=== PATIENT | male | born 1940 | race Caucasian/White ===

== ENCOUNTER 2016-10-21 12:30 | Inpatient (IN) | payer OTHER ==
[~2016-10-21] VITALS: Ht 172.7 cm; Wt 118.1 kg
[~2016-10-21 12:30] MED LIST: ALLOPURINOL300 MG PO; ANTIVERT25 MG PO; ASPIRIN325 MG PO; CENTRUM SILVER1 EAC1 PO; COLBENEMID1 TABLET PO; FISH OIL 1,2001 EAC4 PO; GLIPIZIDE XL10 MG PO; GLUCOPHAGE500 MG PO; LISINOPRIL20 MG PO; METOPROLOL TART25 MG PO; SKIN TREATMENT225 GM TP; ZOCOR20 MG PO
[2016-10-21 13:29] LABS: HEMATOCRIT 40.2 % (38.0-50.0); MCH 29.3 PG (29.0-34.0); MCHC 34.6 G/DL (30.0-36.0); MCV 84.6 FL (86-99); PLATELET COUNT 187 K/uL (156-360); RBC DIS.WIDTH-CV 13.7 % (11.8-14.6); RED BLOOD COUNT 4.75 M/uL (4.00-5.50); WHITE BLOOD COUNT 12.7 K/uL (4.1-10.2)
[2016-10-21 13:38] LABS: CHLORIDE 105 mEq/L (99-109); POTASSIUM 5.1 mEq/L (3.7-5.4); SODIUM 137 mEq/L (136-147)
[2016-10-21 13:40] LABS: GLUCOSE 181 mg/dL (70-99)
[2016-10-21 13:41] LABS: ANION GAP 18 MEQ/L (2-14)
[2016-10-21 13:42] LABS: TOTAL BILIRUBIN 0.9 mg/dL (0.0-1.0)
[2016-10-21 13:43] LABS: ALKALINE PHOSPHATASE 73 IU/L (3-129)
[2016-10-21 13:45] LABS: UREA NITROGEN (BUN) 39 mg/dL (9-23)
[2016-10-21 13:47] LABS: GFR ESTIMATE (CALCULATED) 28 mL/min/
[2016-10-21] MEDS ORDERED: LOPRESSOR50 MG PO (14:13)
[2016-10-21] MEDS ORDERED: FLONASE16 G1 BOTH NARES (14:14)
[2016-10-21] MEDS ORDERED: ARTIFICIAL TEAR1510 BOTH EYES (14:15)
[2016-10-21] MEDS ORDERED: TYLENOL EXTRA500 MG PO (14:15)
[2016-10-21] MEDS ORDERED: LIPITOR40 MG PO (14:16)
[2016-10-21 15:19] LABS: ADD MIUA? YES; BILIRUBIN NEGATIVE; BLOOD LARGE; COLOR AMBER ((YELLOW)); GLUCOSE (STRIP) NEGATIVE; KETONES NEGATIVE; LEUKOCYTES NEGATIVE; NITRITE NEGATIVE; PROTEIN (STRIP) 100; UROBILINOGEN 0.2 MG/DL (0.2-1.0)
[2016-10-21 16:11] LABS: RED BLOOD CELLS TNTC /HPF (0-5); UCUL ADDED? YES
[2016-10-21 23:20] LABS: POINT-OF-CARE METER ID UU13113675
[2016-10-21 23:57] LABS: TROP-I INTERPRETATION NEGATIVE; TROPONIN-I < 0.01 ng/mL (0.0-0.30)
[2016-10-22 01:51] VITALS: BP 131/67
[2016-10-22 06:19] LABS: ANION GAP 12 MEQ/L (2-14); CHLORIDE 107 MEQ/L (99-109); GFR ESTIMATE (CALCULATED) > 59 mL/min/; GLUCOSE 155 mg/dL (70-99); POTASSIUM 4.6 MEQ/L (3.7-5.4); SAMPLE HEMOLYSIS CHECK 0; SAMPLE ICTERIC CHECK 0; SAMPLE LIPEMIA CHECK 0; SODIUM 138 MEQ/L (136-147); UREA NITROGEN (BUN) 24 mg/dL (9-23)
[2016-10-22 06:28] LABS: TROP-I INTERPRETATION NEGATIVE; TROPONIN-I 0.04 ng/mL (0.0-0.30)
[2016-10-22 06:44] LABS: HEMATOCRIT 35.1 % (38.0-50.0); MCH 29.4 PG (29.0-34.0); MCHC 33.9 G/DL (30.0-36.0); MCV 86.7 FL (86-99); RBC DIS.WIDTH-CV 13.9 % (11.8-14.6); RBC DIS.WIDTH-SD 43.5 % (39-53); RED BLOOD COUNT 4.05 M/uL (4.00-5.50)
[2016-10-22 06:50] LABS: WHITE BLOOD COUNT 5.2 K/uL (4.1-10.2)
[2016-10-22 07:56] LABS: POINT-OF-CARE METER ID UU14174216
[2016-10-22 08:00] VITALS: BP 115/82
[2016-10-22 11:10] LABS: POINT-OF-CARE METER ID UU14174216
[2016-10-22 12:00] VITALS: BP 108/59
[2016-10-22 14:53] LABS: MEAN PLAT.VOLUME 9.5 uM^3 (9.0-12.4); PLAT.SUFFICIENCY DECREASED
[2016-10-22 15:36] LABS: PLATELET COUNT 105 K/uL (156-360)
[2016-10-22 16:00] VITALS: BP 91/54
[2016-10-22 16:05] LABS: POINT-OF-CARE METER ID UU14174216
[2016-10-22 20:15] VITALS: BP 98/67
[2016-10-23] VITALS (7 sets, daily range): BP systolic 104–137; BP diastolic 61–83
[2016-10-23 06:55] LABS: HEMATOCRIT 33.2 % (38.0-50.0); MCHC 33.4 G/DL (30.0-36.0); MCV 86.7 FL (86-99); MEAN PLAT.VOLUME 9.3 uM^3 (9.0-12.4); PLATELET COUNT 110 K/uL (156-360); RBC DIS.WIDTH-SD 44.2 % (39-53); RED BLOOD COUNT 3.83 M/uL (4.00-5.50); WHITE BLOOD COUNT 5.8 K/uL (4.1-10.2)
[2016-10-23 07:20] LABS: ANION GAP 12 MEQ/L (2-14); CHLORIDE 110 MEQ/L (99-109); GFR ESTIMATE (CALCULATED) > 59 mL/min/; GLUCOSE 136 mg/dL (70-99); POTASSIUM 4.3 MEQ/L (3.7-5.4); SAMPLE HEMOLYSIS CHECK 0; SAMPLE ICTERIC CHECK 0; SAMPLE LIPEMIA CHECK 0; SODIUM 143 MEQ/L (136-147); UREA NITROGEN (BUN) 25 mg/dL (9-23)
[2016-10-23 12:06] LABS: POINT-OF-CARE USER ID ENVKC36
[2016-10-23 16:46] LABS: POINT-OF-CARE USER ID ENVKC36
[2016-10-24 03:35] VITALS: BP 104/67
[2016-10-24 05:52] LABS: POINT-OF-CARE METER ID UU14162508
[2016-10-24 08:44] VITALS: BP 104/67
[2016-10-24 11:05] VITALS: BP 116/66
[2016-10-24 15:15] VITALS: BP 119/71
[2016-10-24 21:13] VITALS: BP 145/91
[2016-10-24 23:57] VITALS: BP 127/87
[2016-10-25 05:58] VITALS: BP 137/74
[2016-10-25 06:53] LABS: HEMATOCRIT 32.8 % (38.0-50.0); MCH 28.6 PG (29.0-34.0); MCHC 33.8 G/DL (30.0-36.0); MCV 84.5 FL (86-99); MEAN PLAT.VOLUME 9.6 uM^3 (9.0-12.4); PLATELET COUNT 136 K/uL (156-360); RBC DIS.WIDTH-CV 13.9 % (11.8-14.6); RBC DIS.WIDTH-SD 42.8 % (39-53); RED BLOOD COUNT 3.88 M/uL (4.00-5.50); WHITE BLOOD COUNT 4.6 K/uL (4.1-10.2)
[2016-10-25 07:20] LABS: ANION GAP 10 MEQ/L (2-14); CHLORIDE 109 MEQ/L (99-109); GFR ESTIMATE (CALCULATED) > 59 mL/min/; GLUCOSE 146 mg/dL (70-99); POTASSIUM 3.8 MEQ/L (3.7-5.4); SAMPLE HEMOLYSIS CHECK 0; SAMPLE ICTERIC CHECK 0; SAMPLE LIPEMIA CHECK 0; SODIUM 139 MEQ/L (136-147); UREA NITROGEN (BUN) 15 mg/dL (9-23)
[2016-10-25] MEDS ORDERED: FLORASTOR250 MG PO (14:37)
[2016-10-25] MEDS ORDERED: LEVAQUIN500 MG PO (14:37)
[2016-10-25] MEDS ORDERED: COLACE100 MG PO (14:37)
[2016-10-25] MEDS ORDERED: NORCO 5/3251 TABLET PO (14:37)
== END 2016-10-25 16:38 | disposition home or self-care (01) | DRG 339 ==
LOC: EME 12:30 → SDC 19:20 → EME 19:20 → 2SOUTH 22:31 → 4EAST 22:31 → 2EAST 22:31 → 2SOUTH 22:31 → 4EAST 10-22 01:39 → 2EAST 10-23 22:20
PROVIDERS: Thoracic Surgery (Cardiothoracic Vascular Surgery)
PROC: 0DTJ0ZZ Resection of Appendix, Open Approach (ICD-10-PCS; principal; 2016-10-21)
DX: K35.2 Acute appendicitis with generalized peritonitis (principal); N17.9 Acute kidney failure, unspecified; R63.0 Anorexia; I10 Essential (primary) hypertension; E11.9 Type 2 diabetes mellitus without complications; I25.10 Atherosclerotic heart disease of native coronary artery without angina pectoris; I25.2 Old myocardial infarction; E78.5 Hyperlipidemia, unspecified; Z98.61 Coronary angioplasty status; E86.0 Dehydration; E66.9 Obesity, unspecified; Z68.39 Body mass index [BMI] 39.0-39.9, adult; M10.9 Gout, unspecified; Z87.891 Personal history of nicotine dependence; Z79.84 Long term (current) use of oral hypoglycemic drugs
CPT/HCPCS: 36415; 80048; 80053; 81003; 82150; 82948; 83690; 84484; 85007; 85025; 85027; 87070; 87075; 87076; 87077; 87086; 87185; 87186; 87205; 88304; 93005; 94799; 99281; 99285; J0330; J1170; J1335; J1644; J1815; J2370; J2405; J2710; J3010; J7030; J7050; S0028